=== PATIENT | female | born 1980 | race Caucasian/White ===

== ENCOUNTER 2022-06-10 09:41 | Emergency (ER) | payer SELFPAY ==
[~2022-06-10] VITALS: Wt 155.5 kg
[2022-06-10 10:20] LABS: BASO # 0.03 K/mm3 (0.02-0.10); EOS # 0.05 K/mm3 (0.04-0.40); EOS % 0.6 % (1.0-5.0); HEMATOCRIT 44.2 % (37.0-47.0); HEMOGLOBIN 14.3 g/dL (12.5-16.0); LYMPH# 1.63 K/mm3 (1.50-4.00); MEAN CELL VOLUME 82 fl (78-100); MEAN CORPUSCULAR HEMOGLOBIN 26 pg (27-31); MEAN CORPUSCULAR HGB CONC 32 g/dL (33-37); MEAN PLATELET VOLUME 9.9 fl (7.4-10.4); MONO # 0.56 K/mm3 (0.20-0.80); NEU # 6.52 K/mm3 (1.40-6.50); PLATELET COUNT 278 K/mm3 (130-400); RED BLOOD COUNT 5.42 M/mm3 (4.10-5.30); RED CELL DISTRIBUTION WIDTH 14.1 % (11.5-14.5); WHITE BLOOD COUNT 8.8 K/mm3 (4.8-10.8)
[2022-06-10 10:29] LABS: ALBUMIN 3.9 g/dL (3.5-5.0); POTASSIUM 4.5 mmol/L (3.5-5.1)
[2022-06-10 10:31] LABS: CALCIUM 9.2 mg/dL (8.3-10.5)
[2022-06-10 10:32] LABS: TOTAL PROTEIN 7.1 g/dL (6.4-8.3)
[2022-06-10 11:32] VITALS: BP 143/94
[2022-06-10 12:14] LABS: TOTAL BILIRUBIN 0.6 mg/dL (0.2-1.2)
== END 2022-06-10 11:40 | disposition short-term general hospital (02) ==
LOC: ED 09:41
PROVIDERS: Family Medicine
DX: N13.2 Hydronephrosis with renal and ureteral calculous obstruction (principal); Z28.310 Unvaccinated for COVID-19
CPT/HCPCS: J1885; J2270; J7030; Q9967